=== PATIENT | female | born 1945 | race Caucasian/White ===

== ENCOUNTER → 2016-12-19 | Outpatient (CLI) | payer MEDICARE, OTHER ==
[~2016-12-19] MED LIST: ECOTRIN325 MG PO; LEVOTHROID(SYN75 MCG PO; RYTHMOL150 M1 PO; TYLENOL325 MG PO; ZESTORETIC 10-1 EACH PO
== END | disposition disaster alternative care site (69) ==
LOC: LHSC 11:19
DX: D12.6 Benign neoplasm of colon, unspecified (principal); Z12.11 Encounter for screening for malignant neoplasm of colon